=== PATIENT | female | born 1945 | race Caucasian/White ===

== ENCOUNTER 2020-11-05 13:29 | Emergency (ER) | payer OTHER ==
[~2020-11-05] VITALS: Ht 165.1 cm; Wt 95.3 kg
[2020-11-05 13:38] VITALS: BP_SYST 47
--- NOTE | 2020-11-05 13:52 | NUR ---
75 YEAR OLD FEMALE COMPLAINS OF VAGINAL PAIN X 1 WEEK. PT STATES THAT SHE HAS PAINFUL URINATION THAT DORAN WITH ODOR URINE. PT DENIES BLEEDING OR DISCHARGE. PT AOX4, BREATHING EVEN AND UNLABORED, SKIN WARM AND DRY. BED IN LOWEST POSITION, LOCKED, BED RAIL UPX1. PMH - HTN, HIP REPLACE ALLERGIES - NKA
[2020-11-05] MEDS ORDERED: cefTRIAXone 1,000 MG in LIDOCAINE MPF 1% 2.1 ML IM ONE (14:25)
[2020-11-05 14:27] LABS: APPEARANCE,URINE HAZY (CLEAR); BILIRUBIN,URINE NEGATIVE (NEGATIVE); BLOOD, URINE NEGATIVE (NEGATIVE); COLOR,URINE YELLOW (YELLOW); LEUKOCYTE ESTERASE ,URINE 2+ (NEGATIVE); NITRITE, URINE POSITIVE (NEGATIVE); PH,URINE 7.5 (5.0-9.0); UGLUCOSE NEGATIVE (NEGATIVE)
--- NOTE | 2020-11-05 14:30 | NUR ---
PT ALERT AND AWAKE, BREATHING EVEN AND UNLABORED, NO DISTRESS NOTED. ALL NEEDS MET AT THIS TIME.
[2020-11-05] MEDS ORDERED: LIDOCAINE MPF 1% 5 ML ONE (14:31)
[2020-11-05] MEDS ORDERED: cefTRIAXone 1,000 MG VIAL ONE (14:31)
[2020-11-05 14:35] LABS: RBC,URINE 0-5 /HPF (0-5)
--- NOTE | 2020-11-05 14:48 | NUR ---
Female Mulling Machine Operator accompanied female patient for Pelvic Exam.
[2020-11-05] MEDS ORDERED: PHEN-1877 PO (15:22)
[2020-11-05] MEDS ORDERED: CEPH-588 PO (15:22)
--- NOTE | 2020-11-05 15:35 | NUR ---
Patient discharged with v/s stable. Written and verbal after care instructions about urinary tract infection given and explained. Patient alert, oriented and verbalized understanding of instructions. Ambulatory with steady gait. All questions addressed prior to discharge. ID band removed. Patient advised to follow up with PMD. Rx of keflex, pyridium given. Patient educated on indication of medication including possible reaction and side effects. Opportunity to ask questions provided and answered.
[2020-11-05 15:38] VITALS: BP 145/89
== END 2020-11-05 15:35 | disposition home or self-care (01) ==
LOC: MED 13:29
DX: N39.0 Urinary tract infection, site not specified (principal); I10 Essential (primary) hypertension; F03.90 Unspecified dementia, unspecified severity, without behavioral disturbance, psychotic disturbance, mood disturbance, and anxiety; Z98.890 Other specified postprocedural states
CPT/HCPCS: 81001; 87210; 96372; 99283; J0696; J2001

== ENCOUNTER 2020-11-14 13:48 | Emergency (ER) | payer OTHER ==
[~2020-11-14] VITALS: Ht 160 cm; Wt 67.6 kg
[~2020-11-14 13:48] MED LIST: CEPH-588 PO; PHEN-1877 PO
[2020-11-14 14:00] VITALS: BP 113/55
--- NOTE | 2020-11-14 14:00 | NUR ---
PA BEDSIDE EVALUTING PT
[2020-11-14] MEDS ORDERED: NACL 0.9% 1,000 ML IV ONE ×2 (14:15→16:00)
--- NOTE | 2020-11-14 14:16 | NUR ---
75 Y/O FEMALE BIB DAUGHTER C/O GENERAL WEAKNESS, DIZZINESS, +N/-V X1DAY. PT DAUGHTER STATES "SHE IS WEAKER THAN BEFORE", STATES SHE USES FRONT-WHEEL WALKER AT HOME AND IS WEAKER NOW. NIH 0 AT THIS TIME. DENIES FEVER/CHILLS. PMH: HTN ALLERGIES: PCN
--- NOTE | 2020-11-14 14:35 | NUR ---
LAB BEDSIDE COLLECTING BLOODWORK
--- NOTE | 2020-11-14 14:41 | NUR ---
CHELSEY WOLF TAKEN BEDSIDE AND GIVEN TO [facility] BEDSIDE
[2020-11-14 14:49] LABS: BASOPHILS % (AUTO) 0.4 % (0.0-2.0); EOSINOPHILS # (AUTO) 0.1 K/uL (0-0.4); EOSINOPHILS % (AUTO) 1.5 % (0.0-4.0); HEMATOCRIT 41.1 % (36-48); HEMOGLOBIN 13.8 g/dL (12.0-16.0); LYMPHOCYTES # (AUTO) 0.9 K/uL (2.5-16.5); LYMPHOCYTES % (AUTO) 19.4 % (20.5-51.1); MEAN CORPUSCULAR HEMOGLOBIN 33 pg (27-31); MEAN CORPUSCULAR HGB CONC 34 g/dL (33-37); MEAN CORPUSCULAR VOLUME 97.7 fL (80-94); MONOCYTES # (AUTO) 0.5 K/uL (0.8-1.0); MONOCYTES % (AUTO) 10.7 % (1.7-9.3); PLATELET COUNT (AUTO) 50 K/uL (140-450); RED BLOOD CELL COUNT(AUTO) 4.21 MIL/uL (4.20-5.40); RED CELL DISTRIBUTION WIDTH 15.4 % (11.6-13.7); WHITE BLOOD COUNT (AUTO) 4.5 K/uL (4.8-10.8)
--- NOTE | 2020-11-14 14:57 | NUR ---
quality control lab tech at pt bedside.
--- NOTE | 2020-11-14 14:57 | NUR ---
XRAY BEDSIDE WITH PT
[2020-11-14 15:05] LABS: ANION GAP 17.7 (8-16); CARBON DIOXIDE 21.4 mmol/L (21-32); CHLORIDE 101 mmol/L (98-107); CREATININE 1.1 mg/dL (0.6-1.3); GLUCOSE 144 mg/dL (74-106); SODIUM SERUM 135 mmol/L (136-145); UREA NITROGEN, BLOOD 22 mg/dL (7-18)
--- NOTE | 2020-11-14 15:05 | NUR ---
Obtained BP 86/53, HR 52 MD made aware, NS bolus running at this time 500cc completed, instructed to recheck BP after bolus is complete.
[2020-11-14 15:08] LABS: POTASSIUM 5.1 mmol/L (3.5-5.1)
[2020-11-14 15:15] LABS: ALBUMIN 3.4 g/dL (3.4-5.0); ASPARTATE AMINOTRANSFERASE 51 U/L (15-37); TOTAL BILIRUBIN 0.6 mg/dL (0.0-1.0)
[2020-11-14] MEDS ORDERED: cefTRIAXone 1,000 MG VIAL ONE (15:23)
[2020-11-14 15:34] LABS: BILIRUBIN,URINE NEGATIVE (NEGATIVE); BLOOD, URINE NEGATIVE (NEGATIVE); COLOR,URINE YELLOW (YELLOW); LEUKOCYTE ESTERASE ,URINE 2+ (NEGATIVE); NITRITE, URINE POSITIVE (NEGATIVE); UGLUCOSE NEGATIVE (NEGATIVE)
[2020-11-14 15:36] LABS: APPEARANCE,URINE CLOUDY (CLEAR)
--- NOTE | 2020-11-14 15:54 | NUR ---
XRAY BEDSIDE WITH PT
[2020-11-14 15:55] LABS: RBC,URINE NONE SEEN /HPF (0-5); WBC,URINE 20-60 /HPF (0-5)
--- NOTE | 2020-11-14 15:57 | NUR ---
PT RESTING BEDSIDE WITH LIGHTS OFF. BP ON LOWER END AND PT BRADYCARDIA, MD MADE AWARE. WILL CONTUINE TO MONITOR. BED IN LOWEST POSITION. SIDERAIL X2 UP
[2020-11-14] MEDS ORDERED: CIPR500T4 PO (16:56)
[2020-11-14 17:19] VITALS: BP 97/47
--- NOTE | 2020-11-14 17:20 | NUR ---
Patient discharged with v/s stable. Written and verbal after care instructions given URINARY TRACT INFECTION and explained. Patient alert, oriented and verbalized understanding of instructions. Ambulatory with steady gait. All questions addressed prior to discharge. ID band removed. Patient advised to follow up with PMD. Rx of CIPRO 500MG PO BID FOR 7DAYS given. Patient educated on indication of medication including possible reaction and side effects. Opportunity to ask questions provided and answered.
== END 2020-11-14 17:20 | disposition home or self-care (01) ==
LOC: MED 13:48
DX: R53.1 Weakness (principal); Z20.822 Contact with and (suspected) exposure to COVID-19; N39.0 Urinary tract infection, site not specified; R42 Dizziness and giddiness; R11.0 Nausea; I10 Essential (primary) hypertension; Z88.0 Allergy status to penicillin; Z79.899 Other long term (current) drug therapy
CPT/HCPCS: 36415; 71045; 80053; 81001; 83605; 84484; 85025; 87040; 87086; 87426; 93005; 96361; 96365; 99285; J0696; J7030